=== PATIENT | male | born 1985 | race Caucasian/White ===

== ENCOUNTER 2022-10-09 08:03 | Emergency (ER) | payer MEDICAID ==
[~2022-10-09] VITALS: Ht 182.9 cm; Wt 81.6 kg
[2022-10-09 08:05] VITALS: BP_SYST 144
--- NOTE | 2022-10-09 08:10 | NUR ---
Patient to ER bed 03 to gown for evaluation. Side rails up. Report given to BREN TEJADA.
--- NOTE | 2022-10-09 08:10 | NUR ---
ER at bedside examining patient.
[2022-10-09] MEDS ORDERED: NACL 0.9% 1,000 ML IV ONE (08:15)
--- NOTE | 2022-10-09 08:20 | NUR ---
pt refused to put on gown, stating he doesn't want to be cold. rn made aware
--- NOTE | 2022-10-09 08:37 | NUR ---
PATIENT BIBA FOR SI, PLACE IN ROOM 5 ON OBSERVATION, PATIENT REFUSES ALL LAB EXAM EDP MADE AWARE, WILL CONTINUE TO MONITOR.
--- NOTE | 2022-10-09 09:57 | NUR ---
PATIENT IN BED RESTING COMFORTABLY, NO ACUTE DISTRESS NO SI AT THIS TIME.
--- NOTE | 2022-10-09 10:27 | NUR ---
PATIENT REFUSES IV. EDP MADE AWARE.
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
--- NOTE | 2022-10-09 11:51 | NUR ---
Patient given written and verbal discharge instructions and verbalizes understanding. ER MD discussed with patient the results and treatment provided. Patient in stable condition. ID arm band removed. IV catheter removed intact and dressing applied, no active bleeding. Patient educated on pain management and to follow up with PMD. PT PROVIDED LOGGER RESOURCES, MEDICAL CLEARANCE PROVIDED PER MD RUSHING, PT PROVIDED UBER TRANSPORTATION TO [facility]. Opportunity for questions provided and answered. Medication side effect fact sheet provided.
[2022-10-09 11:53] VITALS: BP_SYST 144
== END 2022-10-09 11:51 | disposition home or self-care (01) ==
LOC: SED 08:03
DX: T43.021A Poisoning by tetracyclic antidepressants, accidental (unintentional), initial encounter (principal); R42 Dizziness and giddiness; Z79.899 Other long term (current) drug therapy; Z20.822 Contact with and (suspected) exposure to COVID-19; Y92.89 Other specified places as the place of occurrence of the external cause
CPT/HCPCS: 36415; 87081; 93005; 99284